=== PATIENT | male | born 1975 | race Two or more races ===

== ENCOUNTER 2017-07-20 19:38 | Emergency (ER) | payer OTHER ==
[~2017-07-20] VITALS: Ht 172.7 cm; Wt 68.0 kg
[2017-07-20 19:38] VITALS: BP 124/74
--- NOTE | 2017-07-20 20:30 | NUR ---
CALLED FOR PT IN [place]. NO RESPONSE.
--- NOTE | 2017-07-20 21:50 | NUR ---
CALLED FOR PT AGAIN; NO RESPONSE
--- NOTE | 2017-07-20 22:22 | NUR ---
CALLED FOR PT, STILL NO RESPONSE.
== END 2017-07-20 22:24 | disposition left against medical advice (07) ==
LOC: ER 19:39
DX: Z53.21 Procedure and treatment not carried out due to patient leaving prior to being seen by health care provider (principal)
CPT/HCPCS: A4606; Z7610